=== PATIENT | male | born 1955 | race Caucasian/White ===

== ENCOUNTER → 2016-12-07 | Day surgery (SDC) | payer BC ==
[~2016-12-07] VITALS: Ht 172.7 cm; Wt 109.8 kg
[~2016-12-07] MED LIST: ALLOPURINOL100 MG PO; CLARITIN10 M2 PO; COLCHICINE0.6 MG PO; MULTI VITAMIN1 EACH PO; NEXIUM20 MG PO; NORCO 5-325 MG1 TAB PO; VASERETIC 10-21 EACH PO; ZYLOPRIM300 MG PO
--- NOTE | ~2016-12-07 | OR ---
PATIENT'S NAME: PAUL GOFF [facility] AGE: 61 Y [address] ROOM: [place] [id number] LOCATION: [facility] [place] ADMIT DATE: 12/07/2016 OR/Procedure Report DISCHARGE DATE: FAMILY PHYSICIAN: PHYSICIAN, NO ATTENDING PHYSICIAN: Ludin Hawk SURGEON: Ludin Hawk MD CONE WINDER: DATE OF PROCEDURE: 12/07/2016 PREOPERATIVE DIAGNOSIS: Urothelial carcinoma. POSTOPERATIVE DIAGNOSIS: Urothelial carcinoma with pathology pending. PROCEDURES: 1. Cystoscopy and retrograde. 2. Transurethral resection of bladder tumors. ANESTHESIA: General. INDICATIONS: This is a 61-year-old gentleman with a history of urothelial carcinoma. He was recently seen for surveillance. He has some oozing erythematous areas in the site of his previous resection. He also has an obvious papillary, satellite lesion towards the dome. The 2 tumors combined are approximately 1 cm. He presents for resection of these lesions and screening of his upper tracts. He has had BCG as well as maintenance BCG. DESCRIPTION OF PROCEDURE: Having obtained his informed consent, the patient was taken to cystoscopy suite. He was prepped and draped sterilely and in lithotomy position. We started with IV sedation, but he started coughing and Anesthesia converted him to a general. Rigid cystoscopy was undertaken. The course of the urethra was unremarkable. He demonstrated some mild trilobar hypertrophy. Moving on the bladder, he has a scarring on the left side with the suspicious area within the scar as noted above. He also has the previously noted satellite lesion on the left side towards the dome. Careful examination of bladder using the 30- and 70-degree lenses reveals no other areas of abnormality. Both orifices were effluxing clear urine. Preliminary survey was undertaken. Bowel gas pattern, soft tissue outlines are within normal limits. Contrast was instilled bilaterally. He has narrow and delicate ureters with no filling defects and no sign of obstruction. The calices were finely cupped. The upper tracts were felt to be within normal limits. PATIENT'S NAME: PAUL GOFF [facility] AGE: 61 Y [address] ROOM: [place] [address] LOCATION: [facility] [place] ADMIT DATE: 12/07/2016 OR/Procedure Report DISCHARGE DATE: FAMILY PHYSICIAN: PHYSICIAN, NO ATTENDING PHYSICIAN: Ludin Hawk The resectoscope was now placed. I took a health and safety representative loop through the middle of the old scarred area including the oozing and erythematous tissue. I then resected the area towards the dome. We then used the cautery mode and aggressively cauterized the base and periphery of the biopsy sites. At the conclusion, the irrigation was turned off. We have good hemostasis. The case was concluded. The patient tolerated the procedure well. Blood loss was negligible. The above-noted specimens were sent. The patient was returned to recovery in awake and stable condition. LUDIN HAWK MD [facility]/modl /[id number] CC: Fadumo Au MD d: 12/07/16 0845 t: 12/14/16 0932, OPERATIVE SUMMARY
== END | disposition disaster alternative care site (69) ==
LOC: GPOC 12-06 17:00 → GSDC 06:15 → GPOC 17:00
PROC: 0TBB8ZX Excision of Bladder, Via Natural or Artificial Opening Endoscopic, Diagnostic (ICD-10-PCS; principal; 2016-12-07)
DX: N30.20 Other chronic cystitis without hematuria (principal); I10 Essential (primary) hypertension; M10.9 Gout, unspecified; Z85.51 Personal history of malignant neoplasm of bladder; Z79.899 Other long term (current) drug therapy; Z87.891 Personal history of nicotine dependence; Z98.890 Other specified postprocedural states
CPT/HCPCS: J1956; J2001; J7030